=== PATIENT | male | born 1980 | race American Indian/Alaskan Native ===

== ENCOUNTER 2016-12-14 08:35 | Emergency (ER) | payer OTHER ==
[2016-12-14 08:41] VITALS: BP 131/88; PULSE 76; RESP 16; TEMP 98.8; O2SAT 98
--- NOTE | 2016-12-14 09:45 | ED PDOC ---
Arrival/HPI - General Chief Complaint: Lower Extremity Problem/Injury Time Seen by Provider: 12/14/16 08:53 - History of Present Illness Narrative History of Present Illness (Text): 12/14/16 09:41 36yo male with R. ankle pain, states he rolled/everted it just before he came to the ER. Pt denies foot pain (contrary to triage), denies knee pain, denies any other trauma or injury. Able to ambulate after the incident. No other complaints. Past Medical History - Provider Review Nursing Documentation Reviewed: Yes - Travel History If Yes, travel location?: [facility] - Psychiatric Hx Substance Use: No Family/Social History Family/Social History: Unknown Family HX Smoking Status: Never Smoked Hx Alcohol Use: No Hx Substance Use: No Allergies/Home Meds Allergies/Adverse Reactions: Allergies No Known Allergies Allergy (Verified 12/14/16 08:41) Review of Systems - Physician Review All systems were reviewed & negative as marked: Yes - Review of Systems Musculoskeletal: Other (ankle injury) Physical Exam Vital Signs Reviewed: Yes Vital Signs Temp Pulse Resp BP Pulse Ox 12/14/16 08:38 98.8 F 76 16 131/88 98 Temperature: Afebrile Blood Pressure: Normal Pulse: Regular Respiratory Rate: Normal Appearance: Positive for: Well-Appearing Pain Distress: None Mental Status: Positive for: Alert and Oriented X 3 - Systems Exam Lower Extremity: Present: Other (R. knee with no tenderness to palpation. R. prox fib with no tenderness. r. foot with no pain and no tenderness over the 5th metatarsal. full active and passive ROM. R. ankle with full active and passive ROM. Pain/tenderness and swelling over the lateral malleolus. Distal neurovasc. fully intact) Neurological: Present: Motor Func Grossly Intact, Other (no focal neurological deficits) Medical Decision Making ED Course and Treatment: 12/14/16 09:45 36yo male with R. ankle inversion injury. On exam pt has pain/tenderness and swelling over the lateral malleolus. Foot examination unremarkable. xray shows no acute fractures or dislocations, interpreted by me anai wrap, ice, crutches with instruction provided had an extensive d/w pt that although xrays are negative for any acute bony abnormality, it is still very important to fu with pmd and ortho specialist for further w/u and testing such as MRI to r/o any ligamentous/tendenous/meniscal injury. Pt verbalized full understanding of above discussion. Pt states he understands to return to the ER right away for new or worsening symptoms or for inability to f/u with PMD or specialist as instructed. Patient states that he fully agrees with and understands discharge instructions. States that he agrees with the plan and disposition. Verbalized and repeated discharge instructions and plan. I have given the patient opportunity to ask any additional questions. - RAD Interpretation Radiology Orders: 12/14/16 08:54 ANKLE RIGHT 3 VIEWS ROUTINE [RAD] Stat - Medication Orders Current Medication Orders: Discontinued Medications Ketorolac Tromethamine (Toradol) 30 mg IM STAT STA Stop: 12/14/16 08:54 Last Admin: 12/14/16 09:13 Dose: 30 mg Disposition/Present on Arrival - Present on Arrival Any Indicators Present on Arrival: No History of DVT/PE: No History of Uncontrolled Diabetes: No Urinary Catheter: No History of Decub. Ulcer: No History Surgical Site Infection Following: None - Disposition Have Diagnosis and Disposition been Completed?: Yes Diagnosis: Ankle injury Disposition: HOME/ ROUTINE Disposition Time: 09:52 Patient Plan: Discharge Condition: GOOD Discharge Instructions (ExitCare): Ankle Sprain (ED) Additional Instructions: PLEASE RETURN TO THE EMERGENCY DEPARTMENT FOR NEW OR WORSENING SYMPTOMS. RETURN RIGHT AWAY IF YOU CANNOT FOLLOW UP WITH YOUR PRIMARY CARE DOCTOR, CLINIC, OR SPECIALIST IN 1-2 DAYS. Prescriptions: Ibuprofen [Motrin] 600 mg PO Q8 PRN #12 tab PRN Reason: Pain, Moderate (4-7) Referrals: Titi Snow MD [Staff Provider] - Follow up with primary Mike Gatica DO [Staff Provider] - Follow up with primary Forms: [employer] ([employer]), WORK NOTE
--- NOTE | 2016-12-14 10:28 | RAD ---
PROCEDURE: Right Ankle Radiographs. HISTORY: rolled ankle COMPARISON: None FINDINGS: BONES: Normal. No fracture. JOINTS: Normal. No osteoarthritis. Ankle mortise maintained. Talar dome intact SOFT TISSUES: Normal. OTHER FINDINGS: None. IMPRESSION: Normal right ankle radiographs.
== END 2016-12-14 10:13 | disposition home or self-care (01) ==
LOC: ED 08:35
DX: S93.401A Sprain of unspecified ligament of right ankle, initial encounter (principal); X50.0XXA Overexertion from strenuous movement or load, initial encounter; Y93.9 Activity, unspecified; Y92.9 Unspecified place or not applicable
CPT/HCPCS: 73610; 96372; 99285; J1885